=== PATIENT | male | born 1960 | race Caucasian/White ===

== ENCOUNTER 2021-08-26 11:48 | Emergency (ER) | payer OTHER | END 2021-08-26 12:52 | disposition home or self-care (01) | LOC: JP.ED 11:48 | DX: R00.2 Palpitations (principal); E78.00 Pure hypercholesterolemia, unspecified; Z79.82 Long term (current) use of aspirin; Z79.899 Other long term (current) drug therapy | CPT/HCPCS: 99284 ==